=== PATIENT | female | born 1960 | race Hispanic/Latino ===

== ENCOUNTER 2016-12-03 15:30 | Emergency (ER) | payer OTHER ==
[~2016-12-03] VITALS: Ht 165.1 cm; Wt 101.8 kg
[~2016-12-03 15:30] MED LIST: ALBU8.5H2 IH; ASPI-628 PO; ATRV10T PO; CRAN400C PO; METF500T4 PO; POLY17PO6 PO
[2016-12-03 15:39] VITALS: BP 128/74; PULSE 60; RESP 14; O2SAT 99
--- NOTE | 2016-12-03 15:53 | ED.REPORT ---
HPI-Syncope Date of Service Dec 03, 2016 ED Provider: Ricardo Johnson MD A 56 year old female with a history of hemorrhoids and Type II diabetes treated with oral medication presents to the ED via EMS with dizziness. The patient had a syncopal episode earlier today after watching a family member's kids. She passed out onto a bed. Per EMS, she did not receive any apparent injury from the fall. Associated symptoms include slight feeling of illness onset yesterday , sore throat, nausea, mild [place]. She denies any vomiting, fever, cough, diarrhea. The patient does not smoke or drink. Nursing Notes Stated Complaint: SYNCOPE Chief Complaint: Female Abdominal Pain Nursing Notes Reviewed: Yes Allergies: Coded Allergies: No Known Allergies (Verified Allergy, Unknown, 02/04/15) Scheduled Aspirin (Aspir 81) 81 Mg Tablet.dr 81 MG PO DAILY Atorvastatin (Lipitor) 10 Mg Tab 10 MG PO DAILY Cranberry (Cranberry) 400 Mg Capsule 400 MG PO DAILY Metformin (Metformin) 500 Mg Tablet 500 MG PO BIDWM Polyethylene Glycol 3350 (Miralax) 17 Gm Powd.pack 17 GM PO DAILY Scheduled PRN Albuterol HFA (Proair HFA) 8.5 Gm Hfa.aer.ad 2 PUFFS IH Q4 PRN PRN For Shortness of Breath Ondansetron ODT (Zofran ODT) 4 Mg Tablet 4 MG PO Q4H PRN PRN For Nausea General Time Seen by Provider: 16:00 Chief Complaint Other (Dizziness) Hx Obtained From: Patient, Other family... (unspecified), EMS Arrived By: Ambulance Onset Occurred: 1 - 4 hours ago Symptom Duration: Intermittent Recent Healthcare: No recent doctor visit Similar Sx Previous: No Past Medical History Past Medical History kidney infection, hemorrhoids Reports: Diabetes mellitus, GERD Past Surgical History Reports: Cholecystectomy, Hysterectomy Social History Other Social History: Ambulatory Status Independent Review of Systems Review of Systems Note: Syncope. Feeling ill. Constitutional: Denies: Fever Ears / Nose / Throat: Reports: Sore throat Respiratory: Denies: Non-productive cough GI: Reports: Nausea, Denies: Diarrhea, Vomiting Neurologic: Reports: Dizziness, Headache Complete sys rev & neg: except as marked. Physical Exam Initial Vital Signs Vital Signs (First) Date Time Temp Pulse Resp B/P Pulse Ox O2 Delivery O2 Flow Rate FiO2 12/03/16 15:39 36.7 60 14 128/74 99 Initial VS: Reviewed General/Constitutional: Awake, Alert Respiratory / Chest: Atraumatic, Breath sounds NL, Breath sounds = bilat, No respiratory distress, No rales, No rhonchi, No wheezing Cardiovascular: Heart rate NL, Regular rhythm, Heart sounds NL, No gallop, No murmurs, No rubs Lower Extremity / Pelvis / MS: Atraumatic, Full range of motion Neurologic: Oriented X3, Speech NL Head / Eyes: Atraumatic, PERRL, EOMI ENT: Atraumatic, Airway patent, Mucous membranes moist Mild erythema in throat, no exudate at recheck. Neck: Atraumatic, Full range of motion Abdomen: Atraumatic, No guarding, No rebound Skin: Atraumatic, Color NL, No rash, Warm, Dry Psychiatric: Affect NL, Mood NL Upper Extremity / MS: Atraumatic, Full range of motion Wrist / Hand: Atraumatic, Full range of motion Interpretation & Diagnostics Lab Results Interpretation Result Diagram: 12/03/16 1601 12/03/16 1601 Test 12/03/16 16:01 White Blood Count 9.7th/mm3 (3.8-10.1) Red Blood Count 4.72mil/mm3 (3.90-5.20) Hemoglobin 13.7g/dL (12.0-15.6) Hematocrit 41.8% (35.0-46.0) Mean Corpuscular Volume 88.6fL (81-100) Mean Corpuscular Hemoglobin 29.0pg (27.0-35.0) Mean Corpuscular Hemoglobin Concent 32.8% (32.0-37.0) Red Cell Distribution Width 13.6% (12.3-15.4) Platelet Count 182bil/L (150-400) Neutrophils (%) (Auto) 61.3% (40-74) Lymphocytes (%) (Auto) 23.7% (14-46) Monocytes (%) (Auto) 12.8% (4-12) Eosinophils (%) (Auto) 1.7% (0-5) Basophils (%) (Auto) 0.4% (0-3) Hold Purple Top Tube Received (Received) D-Dimer < 0.5mg/L (<0.50) Hold Blue Top Tube Received (Received) Sodium Level 139mEq/L (134-144) Potassium Level 3.8mEq/L (3.5-5.2) Chloride Level 103mEq/L (97-108) Carbon Dioxide Level 24mmol/L (18-29) Blood Urea Nitrogen 12mg/dL (6-24) Creatinine 0.56mg/dL (0.57-1.00) Estimat Glomerular Filtration Rate 160mL/min (>59) Glucose Level 123mg/dL (60-99) Calcium Level 8.5mg/dL (8.5-10.1) Magnesium Level 2.0mg/dL (1.6-2.6) Total Bilirubin 0.3mg/dL (0.0-1.2) Aspartate Amino Transf (AST/SGOT) 20U/L (0-50) Alanine Aminotransferase (ALT/SGPT) 18U/L (0-32) Alkaline Phosphatase 81U/L (25-150) Troponin T < 0.010ug/L (0.0-0.011) Total Protein 7.2g/dL (6.4-8.4) Albumin 3.9g/dL (3.4-5.0) Hold Red Top Tube Received (Received) Hold [place] Top Tube Received (Received) ECG Interpretation ECG Interpretation: Normal. Sinus rhythm. Rate is 60. Time: 15:56 Interpreted by: ED physician Re-Eval/Medical Decision Med Decision/Clinical Course Patient feels better after IV hydration, nausea is resolved and the patient is not orthostatic. Source of Hx: Old records, EMS Re-Evaluation/Progress : Time of Eval: 17:37 Re-Evaluation/Progress Note: Rechecked patient, explained and discussed test results. Re-examined patient who has mild erythema in throat, no exudate. Counseled Regarding: Diagnosis, Lab results, Need for follow-up, When/why to return to ED Discharge & Departure Impression: Primary Impression: Syncope Syncope type: vasovagal syncope Qualified Code: R55 - Syncope and collapse Additional Impressions: Pharyngitis Pharyngitis/tonsillitis etiology: unspecified etiology Qualified Code: J02.9 - Acute pharyngitis, unspecified Dehydration Disposition: Home Discharge Condition All VS Reviewed: Yes Condition: Improved Patient Instructions: Dehydration (ED), Pharyngitis (ED) Additional Instructions: No dangerous cause for the fainting episode was discovered. I believe you have some significant degree of dehydration. I recommend oral hydration over the next couple of days. Use ondansetron as needed for nausea. Follow up in a few days if not improving, sooner if worse. Referrals: Levar Hayden (PCP) Scribe Attestation Portions of this note were transcribed by Robin Matias and Alva Asif. I, , personally performed the history, physical exam, and medical decision-making: I reviewed and confirmed the accuracy for the information in the transcribed note. Signed by: Robin Matias and luis a Qureshi, 12/03/16 [id number] copies to: Levar Hayden Kirk H MD Dec 03, 2016 15:53 Robin Matias Dec 03, 2016 16:03 Alva Asif Dec 03, 2016 18:17
[2016-12-03] MEDS ORDERED: 0.9% Sodium Chloride 1,000 ML IV ONE (16:14)
[2016-12-03] MEDS ORDERED: Ondansetron 2 mg/mL 2 mL Inj IVPUSH ONE (16:15)
[2016-12-03 16:30] LABS: BASOPHILS % (AUTO) 0.4 % (0-3); EOSINOPHILS % (AUTO) 1.7 % (0-5); MONOCYTES % (AUTO) 12.8 % (4-12); Mean Corpuscular Volume 88.6 fL (81-100); NEUTROPHILS % (AUTO) 61.3 % (40-74); Platelet Count 182 bil/L (150-400)
[2016-12-03 16:45] LABS: TROPONIN T < 0.010 ug/L (0.0-0.011)
[2016-12-03 17:14] VITALS: BP 124/73; PULSE 71
[2016-12-03 17:15] VITALS: BP 137/83; PULSE 82
[2016-12-03] MEDS ORDERED: ONDA4TAB9 PO (17:49)
[2016-12-03 18:12] VITALS: BP 137/83; PULSE 82; RESP 14; O2SAT 99
== END 2016-12-03 18:19 | disposition home or self-care (01) ==
LOC: SED 15:30 → EDBD 15:30 → SED 18:19
DX: R55 Syncope and collapse (principal); J02.9 Acute pharyngitis, unspecified; E86.0 Dehydration; W18.30XA Fall on same level, unspecified, initial encounter; Y93.89 Activity, other specified; Y92.003 Bedroom of unspecified non-institutional (private) residence as the place of occurrence of the external cause; Y99.8 Other external cause status; R11.0 Nausea; R51 Headache; E11.9 Type 2 diabetes mellitus without complications; K21.9 Gastro-esophageal reflux disease without esophagitis; Z79.82 Long term (current) use of aspirin; Z79.84 Long term (current) use of oral hypoglycemic drugs
CPT/HCPCS: 36415; 80053; 83735; 84484; 85025; 85379; 93005; 96361; 96374; 99285; J2405; J7030

== ENCOUNTER 2016-12-10 18:42 | Emergency (ER) | payer OTHER ==
[~2016-12-10] VITALS: Ht 165.1 cm; Wt 100.0 kg
[~2016-12-10 18:42] MED LIST changes: +ONDA4TAB9 PO
[2016-12-10 18:46] VITALS: BP 129/91; PULSE 94; RESP 20; O2SAT 96
[2016-12-10 19:18] VITALS: BP 121/82; PULSE 98; RESP 22; O2SAT 100
[2016-12-10] MEDS ORDERED: Ondansetron 2 mg/mL 2 mL Inj IVPUSH PRN (19:50)
[2016-12-10] MEDS ORDERED: HYDROmorphone 0.5 mg/0.5 mL iSecure Syringe IVPUSH PRN (19:50)
--- NOTE | 2016-12-10 19:50 | ED.REPORT ---
HPI-Abd Pain F 40 and Over Date of Service Dec 10, 2016 ED Provider: Dr. Al Howell Patient is a 56 year old female w/ a hx of hemorrhoids, kidney infection and Type II DM treated w/ oral medication who presents to the ED accompanied by her daughter due to abdominal pain onset yesterday. Associated symptoms include diarrhea, fever, and distended abdomen. She went to the [employer] in [place] yesterday. She was only able to drink 2 cups of coffee today. She denies dysuria, cough, and vomiting. Nursing Notes Stated Complaint: ABD PAIN/FEVER/DIARRHEA Chief Complaint: Female Abdominal Pain Nursing Notes Reviewed: Yes Allergies: Coded Allergies: No Known Allergies (Verified Allergy, Unknown, 12/10/16) Scheduled Aspirin (Aspir 81) 81 Mg Tablet.dr 81 MG PO DAILY Atorvastatin (Lipitor) 10 Mg Tab 10 MG PO DAILY Cranberry (Cranberry) 400 Mg Capsule 400 MG PO DAILY Metformin (Metformin) 500 Mg Tablet 500 MG PO BIDWM Polyethylene Glycol 3350 (Miralax) 17 Gm Powd.pack 17 GM PO DAILY Scheduled PRN Albuterol HFA (Proair HFA) 8.5 Gm Hfa.aer.ad 2 PUFFS IH Q4 PRN PRN For Shortness of Breath Ondansetron ODT (Zofran ODT) 4 Mg Tablet 4 MG PO Q4H PRN PRN For Nausea General Time Seen by MD: 19:49 Chief Complaint Abdominal pain Hx Obtained From: Patient, Daughter Arrived By: Walk-in Sudden in Onset?: Yes Onset Occurred: Yesterday Symptom Duration: Since onset Location: : Abdomen lower: Abdomen upper: Diffuse Quality: Painful Radiation: : Does not radiate Severity: Current: Moderate Recent Healthcare: No recent doctor visit, No recent hospitalization Similar Sx Previous: No Past Medical History Past Medical History kidney infection, hemorrhoids Reports: Diabetes mellitus, GERD Past Surgical History Reports: Cholecystectomy, Hysterectomy Smoking History Never Smoker Social History Other Social History: Ambulatory Status Independent Review of Systems distended abdomen Constitutional: Reports: Fever Respiratory: Denies: Non-productive cough GI: Reports: Abdominal pain, Diarrhea, Nausea, Denies: Vomiting Female: Denies: Dysuria Complete sys rev & neg: except as marked. Physical Exam Vital Signs Vital Signs (First) Date Time Temp Pulse Resp B/P Pulse Ox O2 Delivery O2 Flow Rate FiO2 12/10/16 18:46 36.6 94 20 129/91 96 Room Air Initial VS: Reviewed Head / Eyes: Atraumatic, Normocephalic, PERRL ENT: Mucous membranes moist, Conjunctiva normal, No scleral icterus Neck: Supple, Non-tender, Full range of motion Extremities: Vascular intact, Neuro intact, No swelling, No tenderness Skin: Warm, Dry, No cyanosis Distress / Hydration: Positive: Distress moderate Behavior: Positive: Anxious, Tearful Respiratory / Chest: Atraumatic, Breath sounds NL, Breath sounds = bilat, No respiratory distress, No rales, No rhonchi, No wheezing, No retractions Cardiovascular: Heart rate NL, Regular rhythm, Heart sounds NL, No gallop, No murmurs, No rubs, Peripheral circulation NL, Pulses = bilaterally Abdomen: No guarding, No rebound Bowel Sounds / Distention: Positive: Distention moderate Back: Atraumatic, Inspection NL, Full range of motion, Painless range of motion , Non-tender, No midline vertebral tend, No CVA tenderness Interpretation & Diagnostics Lab Results Interpretation Result Diagram: 12/10/16193912/10/161939 Test 12/10/16 19:40 12/10/16 21:26 White Blood Count 8.6th/mm3 (3.8-10.1) Red Blood Count 5.23mil/mm3 (3.90-5.20) Hemoglobin 15.2g/dL (12.0-15.6) Hematocrit 45.2% (35.0-46.0) Mean Corpuscular Volume 86.4fL (81-100) Mean Corpuscular Hemoglobin 29.1pg (27.0-35.0) Mean Corpuscular Hemoglobin Concent 33.6% (32.0-37.0) Red Cell Distribution Width 13.4% (12.3-15.4) Platelet Count 157bil/L (150-400) Neutrophils (%) (Auto) 79.7% (40-74) Lymphocytes (%) (Auto) 9.6% (14-46) Monocytes (%) (Auto) 9.9% (4-12) Eosinophils (%) (Auto) 0.6% (0-5) Basophils (%) (Auto) 0.1% (0-3) Sodium Level 133mEq/L (134-144) Potassium Level 3.8mEq/L (3.5-5.2) Chloride Level 99mEq/L (97-108) Carbon Dioxide Level 18mmol/L (18-29) Blood Urea Nitrogen 12mg/dL (6-24) Creatinine 0.52mg/dL (0.57-1.00) Estimat Glomerular Filtration Rate 175mL/min (>59) Glucose Level 143mg/dL (60-99) Lactic Acid Level 1.1mmol/L (0.4-2.0) Calcium Level 8.6mg/dL (8.5-10.1) Magnesium Level 2.0mg/dL (1.6-2.6) Total Bilirubin 0.5mg/dL (0.0-1.2) Aspartate Amino Transf (AST/SGOT) 22U/L (0-50) Alanine Aminotransferase (ALT/SGPT) 18U/L (0-32) Alkaline Phosphatase 88U/L (25-150) Total Protein 7.8g/dL (6.4-8.4) Albumin 4.2g/dL (3.4-5.0) Lipase 29U/L (13-60) Hold [place] Top Tube Received (Received) Urine Color Yellow (YELLOW) Urine Appearance Clear (CLEAR,HAZY) Urine pH 6.0 (5.0-8.0) Urine Specific [place] 1.020 (1.003-1.035) Urine Protein Negativemg/dL (NEG,TRACE) Urine Glucose (UA) Negativemg/dL (NEGATIVE) Urine Ketones 15mg/dL (NEGATIVE) Urine Occult Blood Trace (NEGATIVE) Urine Nitrite Negative (NEGATIVE) Urine Bilirubin Negative (NEGATIVE) Urine Urobilinogen Normalmg/dL (NORMAL) Urine Leukocyte Esterase Negative (NEGATIVE) Urine RBC 0-2/hpf (0-2) Urine WBC 0-5/hpf (0-5) Urine Epithelial Cells Few/hpf (NONE-MOD) Urine Crystals None seen (NONE SEEN) Urine Bacteria Few/hpf (NONE-FEW) Urine Hyaline Casts None/lpf (NONE) Urine Granular Casts None seen (NONE SEEN) Urine Waxy Casts None seen (NONE SEEN) Urine Red Blood Cell Casts None seen (NONE SEEN) Urine White Blood Cell Casts None seen (NONE SEEN) Urine Mucus Present (None Seen) Urine Trichomonas None seen (NONE SEEN) Urine Yeast None (NONE SEEN) Urinalysis Comment None Urine Culture Reflexed Not indicated CT Abd / Pelvis Interpretation CT ABDOMEN AND PELVIS IMPRESSION: loops of fluid-filled nondistended distal small bowel riase the possibiltiy of mild enteritis. Study type: Abdominal CT no contrast Interpretation / Wet Read by: Interpret - Radiologist Re-Eval/Medical Decision Med Decision/Clinical Course Camila was medicated hydrated. She felt much better. No further vomiting or diarrhea. Her abdomen became soft and not at all tender. Laboratory work and CT scan were reassuring. Signs and symptoms are consistent with gastroenteritis. Short course of the Morton and Zofran provided for pain. I recommend close outpatient follow-up. She is return if she has any problems or any worsening symptoms. She is discharged in stable condition. She was unable to provide a stool sample. Counseled Regarding: Diagnosis, Lab results, Need for follow-up, When/why to return to ED Discharge & Departure Primary Impression: Gastroenteritis Disposition: Home Discharge Condition All VS Reviewed: Yes Condition: Stable Patient Instructions: Acute Abdominal Pain (ED), Gastroenteritis (ED) Additional Instructions: Drink plenty of liquids. Clear liquid diet for the next 24 hours. Zofran 1 every 8 hours needed for nausea. Morton one every 6 hours needed for pain. Be seen right away if you develop any bloody stools. Come back if you have any problems or any worsening symptoms. Call your doctor in the morning for follow- up later this week. Do not drive or drink alcohol or consume acetaminophen while taking the Morton. I suspect that you have a viral infection. I am hoping that you are feeling much better in the next 24-48 hours. Referrals: Levar Hayden (PCP) Luis A Attestation Portion of this note were transcribed by Whitley Armstrong. I, Dr. Howell, personally performed the history, physical exam, and medical decision-making: I reviewed and confirmed the accuracy for the information in the transcribed note. Signed by: luis a Jimenez, 12/11/16 0130 copies to: Levar Hayden Todd P DO Dec 10, 2016 19:50 Whitley Armstrong Dec 10, 2016 20:37
[2016-12-10 19:51] LABS: BASOPHILS % (AUTO) 0.1 % (0-3); EOSINOPHILS % (AUTO) 0.6 % (0-5); MONOCYTES % (AUTO) 9.9 % (4-12); Mean Corpuscular Hemoglobin 29.1 pg (27.0-35.0); Mean Corpuscular Volume 86.4 fL (81-100); NEUTROPHILS % (AUTO) 79.7 % (40-74); Platelet Count 157 bil/L (150-400)
[2016-12-10] MEDS: 0.9% Sodium Chloride 1,000 ML IV SCH ×2 (20:21→22:10)
[2016-12-10 20:22] VITALS: BP 131/63; PULSE 84; RESP 14; O2SAT 97
[2016-12-10 21:41] LABS: APPEARANCE,URINE CLEAR (CLEAR,HAZY); COLOR,URINE YELLOW (YELLOW); OCCULT BLOOD,URINE TRACE (NEGATIVE); UROBILINOGEN,URINE NORMAL (NORMAL)
[2016-12-10] MEDS ORDERED: _Ondansetron ODT 4 mg Tablet PO PRN (22:20)
[2016-12-10] MEDS ORDERED: _HYDROcodone/APAP 5-325 mg Tablet PO PRN (22:20)
[2016-12-10 22:24] VITALS: BP 129/55; PULSE 83; RESP 14; O2SAT 94
[2016-12-11 01:03] VITALS: BP 128/66; PULSE 86; RESP 12; O2SAT 96
--- NOTE | 2016-12-11 10:32 | DRSVH ---
PROCEDURE: CT ABDOMEN AND PELVIS WITH CONTRAST ([id number]) INDICATIONS: diffuse abdominal pain TECHNIQUE: After the administration of intravenous contrast, 5 mm thick sections acquired from the diaphragm to the symphysis. 5 mm coronal and sagittal reformats were acquired. For radiation dose reduction, the following was used: automated exposure control, adjustment of mA and/or kV according to patient siz e. COMPARISON: [facility], CT, ABDOMEN/PELVIS WITH CONTRAST, 04/05/2014, 20:51. FINDINGS: Image quality: Excellent. ABDOMEN: Lung bases: Atelectasis noted in the inner portion of the lung bases bilaterally. Heart size is dhaval l. Solid organs: Liver and spleen are normal in size and enhancement. Diffuse fatty infiltration of the liver is noted. Gallbladder is surgically absent. Biliary system is mildly dilated likely related t o prior cholecystectomy.. Pancreas enhances normally. No adrenal nodules. Kidneys demonstrate norm al size and enhancement, without hydronephrosis. Peritoneum and bowel: Bowel loops demonstrate normal wall thickness and caliber. Multiple fluid-fill ed loops of small bowel are noted. No free fluid or air. Nodes and vessels: No retroperitoneal or mesenteric adenopathy by size criteria. Aorta and inferior vena cava are normal in size. Miscellaneous: No ventral hernias. PELVIS: Genitourinary: Bladder wall thickness is normal. Uterus is absent. Miscellaneous: No inguinal hernias or adenopathy. Bones: No suspicious bony lesions. No vertebral body compression fractures. L5-S1 isthmic spondylol isthesis is noted. IMPRESSION: 1. Non-distended, fluid-filled loops of small bowel possibly related to enteritis. Please correlate w ith clinical data. 2. Hepatic steatosis. 3. Status post cholecystectomy. 4. No free fluid or air. Dictated by: Yarely Martinez MD, PhD on 12/11/2016 at 10:26 Approved by: Yarely Martinez MD, PhD on 12/11/2016 at 10:30
== END 2016-12-11 01:11 | disposition home or self-care (01) ==
LOC: SED 18:42
DX: K52.9 Noninfective gastroenteritis and colitis, unspecified (principal); E11.9 Type 2 diabetes mellitus without complications; K21.9 Gastro-esophageal reflux disease without esophagitis; Z79.82 Long term (current) use of aspirin; Z79.84 Long term (current) use of oral hypoglycemic drugs; Z90.49 Acquired absence of other specified parts of digestive tract
CPT/HCPCS: 36415; 74177; 80053; 81000; 83605; 83690; 83735; 85025; 93005; 96361; 96374; 96375; 99285; J1170; J2405; J7030; Q9967